=== PATIENT | female | born 1935 | race Caucasian/White ===

== ENCOUNTER 2018-03-14 19:45 | Emergency (ER) | payer MEDICARE, BC ==
[~2018-03-14] VITALS: Ht 160 cm; Wt 53.1 kg
[2018-03-14 19:52] VITALS: BP 159/69
== END 2018-03-14 21:34 | disposition home or self-care (01) ==
LOC: ER 19:53
DX: S52.025A Nondisplaced fracture of olecranon process without intraarticular extension of left ulna, initial encounter for closed fracture (principal); S09.8XXA Other specified injuries of head, initial encounter; I10 Essential (primary) hypertension; Z95.5 Presence of coronary angioplasty implant and graft; Z98.890 Other specified postprocedural states; Z88.5 Allergy status to narcotic agent; W01.198A Fall on same level from slipping, tripping and stumbling with subsequent striking against other object, initial encounter; Y93.89 Activity, other specified; Y92.090 Kitchen in other non-institutional residence as the place of occurrence of the external cause; Y99.8 Other external cause status
CPT/HCPCS: 70450-TC; 73080-TC; A4606; Z7610

== ENCOUNTER 2021-08-09 14:19 | Emergency (ER) | payer MEDICARE, BC ==
[~2021-08-09] VITALS: Ht 162.6 cm; Wt 50.8 kg
[2021-08-09 14:31] VITALS: BP 122/70
== END 2021-08-09 14:49 | disposition home or self-care (01) ==
LOC: ER 14:48
DX: I72.1 Aneurysm of artery of upper extremity (principal); I10 Essential (primary) hypertension; I25.10 Atherosclerotic heart disease of native coronary artery without angina pectoris; Z90.49 Acquired absence of other specified parts of digestive tract; Z88.5 Allergy status to narcotic agent

== ENCOUNTER 2023-12-21 06:04 | Emergency (ER) | payer MEDICARE, BC ==
[~2023-12-21] VITALS: Ht 165.1 cm; Wt 63.5 kg
[2023-12-21 06:53] LABS: BASOPHILS % (AUTO) 0.5 % (0.0-2.0); EOSINOPHILS # (AUTO) 0.1 K/uL (0.0-0.7); EOSINOPHILS % (AUTO) 2.3 % (0.0-6.0); HEMATOCRIT 37 % (33-45); HEMOGLOBIN 12.4 g/dL (11.5-14.8); LYMPHOCYTES # (AUTO) 1.3 K/uL (0.8-4.8); LYMPHOCYTES % (AUTO) 29.1 % (20.0-44.0); MEAN CORPUSCULAR HEMOGLOBIN 28 PG (26.0-33.0); MEAN CORPUSCULAR HGB CONC 34 g/dl (31.0-36.0); MEAN CORPUSCULAR VOLUME 82 fL (82-100); MONOCYTES # (AUTO) 0.6 K/uL (0.1-1.30); MONOCYTES % (AUTO) 13.3 % (2.0-12.0); NEUTROPHILS # (AUTO) 2.5 K/uL (1.8-8.9); NEUTROPHILS % (AUTO) 54.8 % (43.0-81.0); PLATELET COUNT (AUTO) 162 K/uL (150-450); RED BLOOD CELL COUNT(AUTO) 4.43 MIL/uL (4.0-5.2); RED CELL DISTRIBUTION WIDTH 14.7 % (11.5-15.0); WHITE BLOOD COUNT (AUTO) 4.6 K/uL (4.3-11.0)
[2023-12-21] MEDS ORDERED: BENZONATATE 100 MG CAPSULE PO PRN (07:00)
[2023-12-21 07:30] LABS: ALANINE AMINOTRANSFERASE 21 U/L (12-78); ALBUMIN 3.1 g/dL (3.4-5.0); ALKALINE PHOSPHATASE 76 U/L (46-116); ASPARTATE AMINOTRANSFERASE 28 U/L (15-37); BILIRUBIN,DIRECT 0.1 mg/dL (0.0-0.2); BILIRUBIN,TOTAL 0.4 mg/dL (0.2-1.0); CALCIUM, SERUM 8.5 mg/dL (8.5-10.1); CARBON DIOXIDE 26 mmol/L (21-32); CHLORIDE 98 mmol/L (98-107); GLUCOSE 115 mg/dL (74-106); NT-PRO BNP 985 pg/mL (0-125); POTASSIUM 3.8 mmol/L (3.5-5.1); SODIUM SERUM 133 mmol/L (136-145); TOTAL PROTEIN, SERUM 6.7 g/dL (6.4-8.2); UREA NITROGEN, BLOOD 14 mg/dL (7-18)
[2023-12-21] MEDS ORDERED: ALBU6.7H9 INH (08:46)
[2023-12-21] MEDS ORDERED: BENZ-13 PO (08:46)
[2023-12-21 08:54] VITALS: BP 138/72; TEMP 98.1; O2SAT 96
== END 2023-12-21 08:55 | disposition home or self-care (01) ==
LOC: ER 06:19
DX: R05.9 Cough, unspecified (principal); I10 Essential (primary) hypertension; I25.10 Atherosclerotic heart disease of native coronary artery without angina pectoris; Z95.5 Presence of coronary angioplasty implant and graft; Z88.8 Allergy status to other drugs, medicaments and biological substances; Z20.822 Contact with and (suspected) exposure to COVID-19
CPT/HCPCS: 36415; 71045-TC; 80048-TC; 80076-TC; 83880; 84484-TC; 85025-TC

== ENCOUNTER 2025-02-06 17:13 | Emergency (ER) | payer MEDICARE, BC ==
[~2025-02-06] VITALS: Ht 165.1 cm; Wt 49.0 kg
[~2025-02-06 17:13] MED LIST: ACET650S11 RC; AMLO-212 PO; ATOR10TA PO; ENOX40DI SQ; ESCI5TAB PO; HYDR1LIQ PO; IBUP-1955 PO; LACT-54 PO; MEGE400O5 PO; Menthol/Cetylpyrd (Cepacol) PO; PANT40TA2 PO; PROP20TA19 PO; TEMA7.5C PO
[2025-02-06] MEDS ORDERED: KETOROLAC TROMETHAMINE 15 MG/ML VIAL ONE (17:45)
[2025-02-06] MEDS: KETOROLAC TROMETHAMINE 15 MG/ML VIAL IV ONE (17:49)
[2025-02-06] MEDS: IV NS 0.9% 1,000 ML BAG IV ONE (17:50)
[2025-02-06 17:52] LABS: PLATELET COUNT (AUTO) 370 K/uL (150-450); RED BLOOD CELL COUNT(AUTO) 3.45 MIL/uL (4.0-5.2); RED CELL DISTRIBUTION WIDTH 15.1 % (11.5-15.0); WHITE BLOOD COUNT (AUTO) 11.8 K/uL (4.3-11.0)
[2025-02-06 18:01] LABS: CALCIUM, SERUM 8.4 mg/dL (8.5-10.1); CREATININE 0.9 mg/dL (0.6-1.3); SODIUM SERUM 139.0 mmol/L (136-145); UREA NITROGEN, BLOOD 20.0 mg/dL (7-18)
[2025-02-06 18:04] LABS: INR 1.0 (0.91-1.10)
[2025-02-06 20:06] VITALS: BP 122/56; TEMP 97.8; O2SAT 96
== END 2025-02-06 20:07 | disposition short-term general hospital (02) ==
LOC: ER 17:16
DX: M25.551 Pain in right hip (principal); R62.7 Adult failure to thrive; I11.9 Hypertensive heart disease without heart failure; F17.200 Nicotine dependence, unspecified, uncomplicated; Z88.5 Allergy status to narcotic agent; Z96.641 Presence of right artificial hip joint; Z79.899 Other long term (current) drug therapy
CPT/HCPCS: 99285; 96374; 96361; 73502; 85025; 80048; 36415; 85730; J1885; J7030